=== PATIENT | female | born 1990 | race Caucasian/White ===

== ENCOUNTER → 2017-04-05 | Day surgery (SDC) | payer OTHER ==
--- NOTE | 2017-04-06 07:36 | OP ---
DATE OF OPERATION: 04/05/2017 PREOPERATIVE DIAGNOSIS: Right breast mass 8 o'clock, 6 cm from the nipple. POSTOPERATIVE DIAGNOSIS: Right breast mass 8 o'clock, 6 cm from the nipple. PROCEDURE: Right ultrasound guided core biopsy with clip placement. ANESTHESIA: Local. ATTENDING SURGEON: Holly Blum MD ESTIMATED BLOOD LOSS: Minimal. COMPLICATIONS: None. DESCRIPTION OF PROCEDURE: Patient was made aware of the risks and benefits of the procedure and consented. She was placed in the supine position. Under sterile conditions with 1% Lidocaine for local anesthesia, small jordi was made in the skin. Using a 13-guage suction biopsy device using an inferolateral approach and ultrasound guidance, 6 cores were obtained and submitted to Pathology. Likewise, under ultrasound guidance, a bowtie clip was placed into the biopsy region, well tolerated by patient. Steri-Strip and sterile bandage were applied. Will contact her with the results. HOLLY BLUM M.D. [id number]
--- NOTE | 2017-04-07 11:21 | PATH ---
Surgical Pathology Report Patient Name: DEDRA [facility]. Rec. #: [id number] /Age/Gender: 1990 (Age: 26) / F Account: [id number] Location: [facility] Taken: 04/05/2017 Received: 04/05/2017 Reported: 04/07/2017 Physicians: Holly Blum M.D. Specimen(s) Received RIGHT BREAST CORE BIOPSY 8:00, 6CM FN Clinical History Nonpalpable lesion, probably benign Final Diagnosis RIGHT BREAST, 8:00 6 CM FROM NIPPLE, ULTRASOUND GUIDED NEEDLE CORE BIOPSY: FIBROADENOMA. Electronically Signed Darron Sandy M.D. Gross Description Received in formalin, labeled "right breast biopsy 8:00, 6cmfn," are 7 perez-yellow, cylindrical portions of fibroadipose tissue ranging from 0.8-2.5 cm. in length and averaging 0.2 cm. in diameter. The specimen is submitted in toto in one cassette. Total formalin fixation time: Approximately 28 hours 04/06/201704/06/2017
== END | disposition home or self-care (01) ==
LOC: FRADUS-SUR 13:39
PROVIDERS: ATTEND Surgery Surgical Oncology
PROC: 0HBT3ZX Excision of Right Breast, Percutaneous Approach, Diagnostic (ICD-10-PCS; principal; 2017-04-05)
DX: N63 Unspecified lump in breast (principal); D24.1 Benign neoplasm of right breast
CPT/HCPCS: 19083; 88305-TC

== ENCOUNTER 2023-07-02 12:00 | Day surgery (SDC) | payer BC, OTHER ==
[2023-06-30 11:55] VITALS: BMI 24.9
[2023-07-02 14:10] VITALS: BP 115/50; PULSE 75; RESP 15; TEMP 97.8
== END 2023-07-02 14:27 | disposition home or self-care (01) ==
LOC: JASU-ENDO 12:00
PROVIDERS: ATTEND Internal Medicine Gastroenterology
PROC: 0DJD8ZZ Inspection of Lower Intestinal Tract, Via Natural or Artificial Opening Endoscopic (ICD-10-PCS; principal; 2023-07-02 13:00)
DX: Z12.11 Encounter for screening for malignant neoplasm of colon (principal); K64.8 Other hemorrhoids
CPT/HCPCS: 81025

== ENCOUNTER 2024-05-10 10:04 | Emergency (ER) | payer BC ==
[2024-05-10 10:47] VITALS: BP 144/97; PULSE 71; RESP 18; TEMP 98.3; BMI 23.5
[2024-05-10] MEDS ORDERED: METOCLOPRAMIDE HCL INJECTION 10 MG/2 ML VIAL ONE (11:25)
[2024-05-10] MEDS ORDERED: PROCHLORPERAZINE INJECTION 10 MG/2 ML VIAL ONE (11:37)
[2024-05-10] MEDS: METOCLOPRAMIDE HCL INJECTION 10 MG/2 ML VIAL IVPB ONE (11:51)
[2024-05-10] MEDS: PROCHLORPERAZINE INJECTION 10 MG/2 ML VIAL IVPB ONE (11:51)
[2024-05-10] MEDS: DEXTROSE 5%-NORMAL SALINE 1,000 ML IV ONE ×2 (11:51→13:44)
[2024-05-10 11:52] LABS: URINE APPEARANCE CLEAR; URINE BILIRUBIN NEGATIVE (NEGATIVE); URINE COLOR YELLOW; URINE GLUCOSE (UA) NEGATIVE (NEGATIVE); URINE KETONE 1+ (NEGATIVE); URINE LEUK ESTERASE NEGATIVE (NEGATIVE); URINE NITRITE NEGATIVE (NEGATIVE); URINE PROTEIN NEGATIVE (NEGATIVE); URINE UROBILINOGEN 0.2 mg/dL (0.2-1.0)
[2024-05-10 11:58] LABS: BASO % 0.2 % (0-2.0); EOS % 0.3 % (0-4.5); HEMATOCRIT 39.9 % (32.4-45.2); HEMOGLOBIN 13.4 GM/dL (10.7-15.3); LYMPH % 19.7 % (8-40); MCHC 33.4 g/dl (32.0-36.0); MEAN CELL VOLUME 86.7 fl (80-96); MEAN PLT VOLUME 8.7 fl (7.5-11.1); MONO % 5.2 % (3.8-10.2); NEUT % 74.6 % (42.8-82.8); PLATELET COUNT 256 10^3/uL (134-434); RBC 4.61 M/mm3 (3.60-5.2); RDW 13.4 % (11.6-15.6); WHITE BLOOD COUNT 8.6 K/mm3 (4.0-10.0)
[2024-05-10 12:10] LABS: CHLORIDE 102 mmol/L (98-107); POTASSIUM 3.2 mmol/L (3.5-5.1); SODIUM 139 mmol/L (136-145)
[2024-05-10 12:12] LABS: CALCIUM 9.7 mg/dL (8.5-10.1)
[2024-05-10 12:13] LABS: ALBUMIN 4.3 g/dl (3.4-5.0); ANION GAP 12 mmol/L (4-13); CO2 26 mmol/L (21-32); GLUCOSE,RANDOM 101 mg/dL (74-106)
[2024-05-10 12:15] LABS: CREATININE 0.7 mg/dL (0.55-1.3)
[2024-05-10 12:16] LABS: SGOT/AST 19 U/L (15-37); SGPT/ALT 57 U/L (13-61)
[2024-05-10 12:17] LABS: TOT PROT 7.6 g/dl (6.4-8.2)
[2024-05-10 12:18] LABS: ALK PHOS 55 U/L (45-117); BILIRUBIN,TOTAL 0.4 mg/dL (0.2-1)
[2024-05-10] MEDS ORDERED: KETOROLAC TROMETHAMINE 15 MG/ML VIAL ONE (12:28)
[2024-05-10] MEDS: KETOROLAC TROMETHAMINE 30 MG/1 ML VIAL IVPUSH ONE (12:30)
[2024-05-10 12:32] LABS: BLOOD UREA NITROGEN 2.9 mg/dL (7-18)
[2024-05-10] MEDS ORDERED: PROMETHAZINE HCL 25 MG/1 ML VIAL ONE (13:36)
[2024-05-10] MEDS: PROMETHAZINE HCL 25 MG/1 ML VIAL IVPB ONE (13:44)
[2024-05-10] MEDS: PYRIDOXINE HCL 100 MG/1 ML VIAL IM ONE (15:54)
== END 2024-05-10 15:56 | disposition home or self-care (01) ==
LOC: JER 10:04
PROC: 3E033GC Introduction of Other Therapeutic Substance into Peripheral Vein, Percutaneous Approach (ICD-10-PCS; principal; 2024-05-10)
PROC: 3E0333Z Introduction of Anti-inflammatory into Peripheral Vein, Percutaneous Approach (ICD-10-PCS; 2024-05-10)
PROC: 3E033GC Introduction of Other Therapeutic Substance into Peripheral Vein, Percutaneous Approach (ICD-10-PCS; 2024-05-10)
PROC: 3E033GC Introduction of Other Therapeutic Substance into Peripheral Vein, Percutaneous Approach (ICD-10-PCS; 2024-05-10)
PROC: 3E0337Z Introduction of Electrolytic and Water Balance Substance into Peripheral Vein, Percutaneous Approach (ICD-10-PCS; 2024-05-10)
PROC: 3E0337Z Introduction of Electrolytic and Water Balance Substance into Peripheral Vein, Percutaneous Approach (ICD-10-PCS; 2024-05-10)
PROC: 3E023GC Introduction of Other Therapeutic Substance into Muscle, Percutaneous Approach (ICD-10-PCS; 2024-05-10)
DX: O21.1 Hyperemesis gravidarum with metabolic disturbance (principal); O26.891 Other specified pregnancy related conditions, first trimester; R10.30 Lower abdominal pain, unspecified; Z3A.01 Less than 8 weeks gestation of pregnancy
CPT/HCPCS: 36415; 80053; 81003; 84702; 85025; 86850; 86900; 86901; 99284-25

== ENCOUNTER 2025-01-01 06:30 | Inpatient (IN) | payer BC ==
[2025-01-01] MEDS: ELECTROLYTE-148 SOLN 1,000 ML IV SCH (07:30)
[2025-01-01 07:54] VITALS: BMI 32.8
[2025-01-01] MEDS: DINOPROSTONE 10 MG VAGINAL SUPPOSITORY VG ONE (09:31)
[2025-01-01 10:10] LABS: BASO % 0.2 % (0-2.0); EOS % 0.3 % (0-4.5); HEMATOCRIT 36.1 % (32.4-45.2); HEMOGLOBIN 11.4 GM/dL (10.7-15.3); LYMPH % 12.7 % (8-40); MCH 26.1 pg (25.7-33.7); MCHC 31.5 g/dl (32.0-36.0); MEAN PLT VOLUME 9.3 fl (7.5-11.1); MONO % 3.9 % (3.8-10.2); NEUT % 82.9 % (42.8-82.8); PLATELET COUNT 232 10^3/uL (134-434); RBC 4.35 M/mm3 (3.60-5.2); RDW 15.6 % (11.6-15.6); WHITE BLOOD COUNT 11.1 K/mm3 (4.0-10.0)
[2025-01-01 10:17] LABS: INR 0.94 (0.83-1.09); PROTHROMBIN TIME (PATIENT) 10.3 SEC (9.7-13.0)
[2025-01-01 10:20] LABS: ACTIVATED PTT 27.5 SECONDS (25.2-36.5)
[2025-01-01 10:31] LABS: POTASSIUM 4.2 mmol/L (3.5-5.1)
[2025-01-01 10:33] LABS: BLOOD UREA NITROGEN 7.5 mg/dL (7-18); CALCIUM 8.6 mg/dL (8.5-10.1)
[2025-01-01 10:37] LABS: CREATININE 0.6 mg/dL (0.55-1.3)
[2025-01-01 12:36] LABS: SYPHILIS W/ RPR CONF NON-REACTIVE (NONREACTIVE)
[2025-01-01] MEDS ORDERED: SODIUM CHLORIDE 100 ML IVPB ONE ×3 (12:53→17:39)
[2025-01-01] MEDS ORDERED: AMPICILLIN SODIUM 2 GM VIAL ONE (12:53)
[2025-01-01] MEDS: AMPICILLIN - 2 GM in SODIUM CHLORIDE 100 ML IVPB ONE (13:01)
[2025-01-01 13:05] LABS: HIV INTERPRETATION NEGATIVE (NEGATIVE)
[2025-01-01] MEDS ORDERED: BUTORPHANOL TARTRATE 2 MG/ML VIAL ONE (13:06)
[2025-01-01] MEDS ORDERED: PROMETHAZINE HCL 25 MG/1 ML VIAL ONE (13:07)
[2025-01-01] MEDS: BUTORPHANOL TARTRATE 2 MG/ML VIAL IVPB ONE (13:25)
[2025-01-01] MEDS: PROMETHAZINE HCL 25 MG/1 ML VIAL IVPB ONE (13:25)
[2025-01-01] MEDS ORDERED: FENTANYL/BUPIVACAINE/NS/PF - PCEA - 50 ML DISP.SYRIN EP ONE ×2 (15:44→20:05)
[2025-01-01] MEDS: FENTANYL/BUPIVACAINE/NS/PF - PCEA - 50 ML DISP.SYRIN EP SCH ×2 (16:10→17:37)
[2025-01-01] MEDS ORDERED: NALOXONE HCL 0.4 MG/ML VIAL IVPUSH PRN (16:31)
[2025-01-01] MEDS ORDERED: ONDANSETRON 4 MG/2 ML VIAL IVPUSH PRN (16:32)
[2025-01-01] MEDS ORDERED: AMPICILLIN SODIUM 1 GM VIAL ONE ×2 (17:38→20:23)
[2025-01-01] MEDS: AMPICILLIN - 1 GM in SODIUM CHLORIDE 100 ML IVPB SCH (17:40)
[2025-01-01] MEDS ORDERED: OXYTOCIN 20 UNITS in 0.9% NS 20 UNIT/1,000 ML INFUS.BAG IV ONE (20:23)
[2025-01-01] MEDS: OXYTOCIN 20 UNITS in 0.9% NS 20 UNIT/1,000 ML INFUS.BAG IV SCH (21:05)
[2025-01-01] MEDS ORDERED: BISACODYL 10 MG SUPP.RECT RC PRN (21:23)
[2025-01-01] MEDS ORDERED: BENZOCAINE 28 GM HEMORRHOIDAL OINTMENT TP PRN (21:23)
[2025-01-01] MEDS ORDERED: WITCH HAZEL 50% (TUCKS) 40 PAD/JAR PAD TP PRN (21:23)
[2025-01-01] MEDS ORDERED: oxyCODONE HCL 5 MG TABLET PO PRN (21:23)
[2025-01-01] MEDS ORDERED: METHYLERGONOVINE MALEATE 0.2 MG/1 ML AMP IM PRN (21:23)
[2025-01-01 21:58] LABS: CORD BASE EXCESS -5.3 mmol/L (0-2); CORD BASE EXCESS -5.8 mmol/L (0-2); CORD HCO3 21.4 mmHg (20-29); CORD HCO3 22.3 mmHg (20-29); CORD PCO2 47.8 mmHg (30-78); CORD PCO2 50.9 mmHg (30-78); CORD pH 7.259 (7.14-7.44); CORD pH 7.268 (7.14-7.44)
[2025-01-01 22:45] VITALS: RESP 18
[2025-01-01] MEDS: BENZOCAINE 20% 57 GM BOTTLE TP PRN (23:51)
[2025-01-01] MEDS: IBUPROFEN 600 MG TABLET (FP) PO PRN (23:52)
[2025-01-02] MEDS: ACETAMINOPHEN 325 MG TABLET (FP) PO PRN (02:46)
[2025-01-02 07:43] LABS: BASO % 0.2 % (0-2.0); EOS % 0.5 % (0-4.5); HEMATOCRIT 29.6 % (32.4-45.2); HEMOGLOBIN 9.9 GM/dL (10.7-15.3); MCH 27.2 pg (25.7-33.7); MCHC 33.4 g/dl (32.0-36.0); MEAN CELL VOLUME 81.5 fl (80-96); MEAN PLT VOLUME 9.2 fl (7.5-11.1); MONO % 4.8 % (3.8-10.2); NEUT % 82.5 % (42.8-82.8); PLATELET COUNT 174 10^3/uL (134-434); RBC 3.63 M/mm3 (3.60-5.2); RDW 15.7 % (11.6-15.6); WHITE BLOOD COUNT 10.7 K/mm3 (4.0-10.0)
[2025-01-02] MEDS: PRENATAL VITAMINS W/ FOLIC ACID TABLET (FP) PO SCH (10:58)
[2025-01-02] MEDS ORDERED: SENNOSIDES/DOCUSATE COMBO (SENNA PLUS) TABLET (UD) PO PRN (22:00)
[2025-01-02 23:35] VITALS: BP 112/76; PULSE 88; TEMP 98
== END 2025-01-03 11:51 | disposition home or self-care (01) | DRG 807 ==
LOC: JLDR 06:30 → J3W 01-02 00:19
PROVIDERS: ADMIT Obstetrics & Gynecology; ATTEND Obstetrics & Gynecology
PROC: 10E0XZZ Delivery of Products of Conception, External Approach (ICD-10-PCS; principal; 2025-01-01)
DX: O48.0 Post-term pregnancy (principal); Z37.0 Single live birth; Z3A.40 40 weeks gestation of pregnancy; O75.89 Other specified complications of labor and delivery; I95.89 Other hypotension
CPT/HCPCS: 36415; 36600; 59409; 80048; 82803; 85025; 85610; 85730; 86780; 86803; 86850; 86900; 86901; 87389